=== PATIENT | male | born 2000 | race Two or more races ===

== ENCOUNTER 2022-05-04 10:13 | Emergency (ER) | payer OTHER ==
[~2022-05-04] VITALS: Ht 177.8 cm; Wt 96.5 kg
[2022-05-04 13:11] LABS: BASO # 0.1 10^3/uL (0.0-0.2); BASO % 0.7 % (0.0-1.0); EOS # 0.2 10^3/uL (0.0-0.5); EOS % 2.7 % (0.0-3.0); HEMATOCRIT 49.6 % (42.0-52.0); HEMOGLOBIN 16.6 g/dl (13.5-17.5); LYMPH # 1.4 10^3/uL (1.5-5.0); MEAN CORPUSCULAR HEMOGLOBIN 30.6 pg (27.0-33.0); MEAN CORPUSCULAR HGB CONC 33.5 g/dl (32.0-36.5); MEAN CORPUSCULAR VOLUME 91.3 fl (80.0-96.0); MONO # 0.6 10^3/uL (0.0-0.8); NEUTROPHILS # 4.9 10^3/uL (1.5-8.5); NEUTROPHILS % 68.3 % (36.0-66.0); PLATELET COUNT, AUTOMATED 205 10^3/uL (150-450); RED BLOOD COUNT 5.43 10^6/uL (4.30-6.10); WHITE BLOOD COUNT 7.1 10^3/uL (4.0-10.0)
[2022-05-04 13:34] LABS: ALBUMIN 4.6 GM/DL (3.2-5.2); BILIRUBIN,DIRECT 0.2 MG/DL (0.0-0.2); BILIRUBIN,TOTAL 0.7 MG/DL (0.2-1.0); TOTAL PROTEIN 8.4 GM/DL (6.4-8.2)
[2022-05-04] MEDS ORDERED: IBUP80TA PO (17:23)
[2022-05-04 17:31] VITALS: BP 140/72
== END 2022-05-04 17:33 | disposition home or self-care (01) ==
LOC: M ED 10:13
DX: M94.0 Chondrocostal junction syndrome [Tietze] (principal)

== ENCOUNTER 2022-08-21 02:21 | Emergency (ER) | payer OTHER ==
[~2022-08-21] VITALS: Ht 177.8 cm; Wt 95.7 kg
[~2022-08-21 02:21] MED LIST: IBUP80TA PO
[2022-08-21 02:57] LABS: BASO # 0.1 10^3/uL (0.0-0.2); BASO % 0.9 % (0.0-1.0); EOS # 0.2 10^3/uL (0.0-0.5); EOS % 3.6 % (0.0-3.0); HEMATOCRIT 46.7 % (42.0-52.0); HEMOGLOBIN 15.7 g/dl (13.5-17.5); LYMPH # 1.2 10^3/uL (1.5-5.0); LYMPH % 18.4 % (24.0-44.0); MEAN CORPUSCULAR HEMOGLOBIN 30.5 pg (27.0-33.0); MEAN CORPUSCULAR HGB CONC 33.6 g/dl (32.0-36.5); MEAN CORPUSCULAR VOLUME 90.9 fl (80.0-96.0); MONO # 0.5 10^3/uL (0.0-0.8); MONO % 8.3 % (2.0-8.0); NEUTROPHILS # 4.4 10^3/uL (1.5-8.5); NEUTROPHILS % 68.3 % (36.0-66.0); PLATELET COUNT, AUTOMATED 248 10^3/uL (150-450); RED BLOOD COUNT 5.14 10^6/uL (4.30-6.10); WHITE BLOOD COUNT 6.4 10^3/uL (4.0-10.0)
[2022-08-21 03:40] LABS: ALBUMIN 3.8 GM/DL (3.2-5.2); ALT/SGPT 21 U/L (12-78); BILIRUBIN,DIRECT 0.2 MG/DL (0.0-0.2); BILIRUBIN,TOTAL 0.4 MG/DL (0.2-1.0); BLOOD UREA NITROGEN 17 MG/DL (7-18); CALCIUM LEVEL 8.6 MG/DL (8.5-10.1); CARBON DIOXIDE LEVEL 31 MEQ/L (21-32); CHLORIDE LEVEL 105 MEQ/L (98-107); GLOMERULAR FILTRATION RATE > 60.0 (>60); GLUCOSE, FASTING 92 MG/DL (70-100); LIPASE 126 U/L (73-393); POTASSIUM SERUM 4.3 MEQ/L (3.5-5.1); SODIUM LEVEL 138 MEQ/L (136-145); TOTAL PROTEIN 7.5 GM/DL (6.4-8.2)
[2022-08-21] MEDS ORDERED: KETOROLAC 30 MG/ML 1ML VIAL IV ONE (06:00)
[2022-08-21] MEDS ORDERED: NS 1,000 ML IV ONE (06:55)
[2022-08-21] MEDS ORDERED: KETO10TAB PO (09:44)
[2022-08-21 10:09] VITALS: BP 162/67
== END 2022-08-21 10:24 | disposition home or self-care (01) ==
LOC: M ED 02:21
DX: R10.9 Unspecified abdominal pain (principal); R29.91 Unspecified symptoms and signs involving the musculoskeletal system; R11.0 Nausea
CPT/HCPCS: 74176; 80048; 80076; 81000; 81002; 82550; 83690; 85025; 87086; 96374; 99284; J1885

== ENCOUNTER 2022-10-29 13:07 | Emergency (ER) | payer OTHER ==
[~2022-10-29] VITALS: Ht 177.8 cm; Wt 96.3 kg
[~2022-10-29 13:07] MED LIST changes: +KETO10TAB PO
[2022-10-29 13:08] VITALS: BP 131/65
[2022-10-29 14:58] LABS: BASO % 0.8 % (0.0-1.0); EOS # 0.2 10^3/uL (0.0-0.5); EOS % 2.8 % (0.0-3.0); HEMATOCRIT 45.7 % (42.0-52.0); HEMOGLOBIN 15.1 g/dl (13.5-17.5); LYMPH # 1.3 10^3/uL (1.5-5.0); MEAN CORPUSCULAR HEMOGLOBIN 30.1 pg (27.0-33.0); MEAN CORPUSCULAR VOLUME 91.2 fl (80.0-96.0); MONO # 0.4 10^3/uL (0.0-0.8); MONO % 8.3 % (2.0-8.0); NEUTROPHILS # 3.3 10^3/uL (1.5-8.5); NEUTROPHILS % 62.7 % (36.0-66.0); PLATELET COUNT, AUTOMATED 237 10^3/uL (150-450); RED BLOOD COUNT 5.01 10^6/uL (4.30-6.10); WHITE BLOOD COUNT 5.3 10^3/uL (4.0-10.0)
[2022-10-29] MEDS ORDERED: NS 1,000 ML IV ONE (15:00)
[2022-10-29] MEDS ORDERED: ONDANSETRON 4MG 2ML VIAL IV ONE (15:00)
[2022-10-29 15:12] LABS: INR 0.89; PROTHROMBIN TIME 12.2 SECONDS (12.5-14.5)
[2022-10-29 15:13] LABS: PARTIAL THROMBOPLASTIN TIME 27.5 SECONDS (24.8-34.2)
[2022-10-29 15:16] LABS: D-DIMER QUANT < 270.0 ng/ml (<500)
[2022-10-29 15:32] LABS: LIPASE 32 U/L (12-53)
[2022-10-29 15:33] LABS: CK-MB VALUE MASS < 1.0 NG/ML (<3.6); MAGNESIUM LEVEL 1.8 MG/DL (1.8-2.4)
[2022-10-29 15:34] LABS: BILIRUBIN,DIRECT 0.2 MG/DL (<0.4); CPK CREATINE PHOSPHOKINASE 363 U/L (46-171); MB/CK RELATIVE INDEX 0.27 (< OR =4)
[2022-10-29 15:35] LABS: ALBUMIN 4.1 G/DL (3.2-5.2); ALKALINE PHOSPHATASE 82 U/L (46-116); ALT/SGPT 14 U/L (7.0-40); AST/SGOT 19 U/L (<34); BILIRUBIN,TOTAL 0.4 MG/DL (0.3-1.2); BLOOD UREA NITROGEN 10 MG/DL (9-23); CALCIUM LEVEL 8.8 MG/DL (8.5-10.1); CARBON DIOXIDE LEVEL 27 MMOL/L (20-31); CHLORIDE LEVEL 106 MMOL/L (98-107); CREATININE FOR GFR 1.26 MG/DL (0.70-1.30); GLOMERULAR FILTRATION RATE > 60.0 (>60); GLUCOSE, FASTING 90 MG/DL (60-100); POTASSIUM SERUM 4.2 MMOL/L (3.5-5.1); SODIUM LEVEL 143 MMOL/L (136-145)
[2022-10-29] MEDS ORDERED: ISOVUE-370 76% 100ML VIAL As Ordered ONE (15:44)
[2022-10-29 16:21] LABS: AMPHETAMINES URINE REFLEX NEGATIVE (NEGATIVE); BARBITURATES URINE REFLEX NEGATIVE (NEGATIVE); BENZODIAZEPINES URINE REFLEX NEGATIVE (NEGATIVE); COCAINE METABOLITE URINE REFLE NEGATIVE (NEGATIVE); METHADONE URINE REFLEX NEGATIVE (NEGATIVE); OPIATES URINE REFLEX NEGATIVE (NEGATIVE)
[2022-10-29 16:22] LABS: CANNABINOIDS URINE REFLEX NEGATIVE (NEGATIVE); PHENCYCLIDINE URINE REFLEX NEGATIVE (NEGATIVE)
[2022-10-29] MEDS ORDERED: ONDA4TAB6 PO (16:52)
[2022-10-29] MEDS ORDERED: OMEP-173 PO (16:52)
== END 2022-10-29 17:06 | disposition home or self-care (01) ==
LOC: M ED 13:07
DX: R11.2 Nausea with vomiting, unspecified (principal); R05.9 Cough, unspecified; R04.2 Hemoptysis; R07.9 Chest pain, unspecified
CPT/HCPCS: 70450; 71046; 74177; 80048; 80076; 80307; 82550; 82553; 83690; 83735; 84484; 85025; 85379; 85610; 85730; 93005; 96361; 96374; 99284; J2405

== ENCOUNTER 2022-12-11 09:19 | Emergency (ER) | payer OTHER ==
[~2022-12-11] VITALS: Ht 177.8 cm; Wt 95.9 kg
[~2022-12-11 09:19] MED LIST changes: +OMEP-173 PO; +ONDA4TAB6 PO
[2022-12-11] MEDS ORDERED: COMBIVENT RESPIMAT 100-20MCG INHALER 4GM INH ONE (10:20)
[2022-12-11] MEDS ORDERED: predniSONE 20 MG TAB PO ONE (11:15)
[2022-12-11] MEDS ORDERED: ALBUTEROL SULFATE 2.5MG/0.5ML INH NEB SOLN INH ONE (11:45)
[2022-12-11] MEDS ORDERED: IPRATROPIUM 0.5MG/ALBUTEROL 2.5MG INH SOL UD 3ML (DUONEB) NEB ONE (11:45)
[2022-12-11 12:26] LABS: RSV AMPLIFICATION NEGATIVE (NEGATIVE)
[2022-12-11] MEDS ORDERED: ALBU6.7H6 INH (12:58)
[2022-12-11] MEDS ORDERED: PRED20TA PO (12:58)
[2022-12-11 13:32] VITALS: BP 157/67
== END 2022-12-11 14:08 | disposition home or self-care (01) ==
LOC: M ED 09:19
DX: J45.909 Unspecified asthma, uncomplicated (principal); Z79.51 Long term (current) use of inhaled steroids
CPT/HCPCS: 71046; 87428; 87631; 94640; 99283; J7512